=== PATIENT | female | born 1965 | race Caucasian/White ===

== ENCOUNTER 2017-12-08 11:45 | Emergency (ER) | payer MEDICAID, BC ==
[2017-12-08 12:57] LABS: URINE BLOOD (Dip) POC Trace-intact (NEGATIVE); URINE GLUCOSE (Dip) POC Negative (NEGATIVE); URINE KETONES (Dip) POC Negative (NEGATIVE); URINE LEUKOCYTE EST (Dip) POC 3+ (NEGATIVE); URINE NITRITE (Dip) POC Positive (NEGATIVE); URINE TOTAL PROTEIN POC 1+ (NEGATIVE)
[2017-12-08] MEDS: KETOROLAC 30 MG INJ IM (13:01)
== END 2017-12-08 14:30 | disposition home or self-care (01) ==
LOC: FTE 11:45
DX: M54.5 Low back pain (principal); G89.29 Other chronic pain; N39.0 Urinary tract infection, site not specified; I10 Essential (primary) hypertension
CPT/HCPCS: 81003; 81025; 87086; 96372; 99284-25